=== PATIENT | male | born 1940 | race Caucasian/White ===

== ENCOUNTER → 2016-06-04 | Outpatient (CLI) | payer MEDICARE, OTHER ==
[~2016-06-04] MED LIST: ACETAMINOPHEN-H1 TA1 PO; ATORVASTATIN CA20 M1 PO; BACTRIM DS 8001 TAB PO; BETAPACE 80MG T80 MG PO; CLOPIDOGREL75 M2 PO; KEFLEX 500MG.500 MG PO; LISINOPRIL10 MG PO; LORTAB 5/500 501 TAB PO; PANTOPRAZOLE SO40 M1 PO; TAMSULOSIN HCL0.4 MG PO
== END ==
LOC: RT 10:26
DX: G47.33 Obstructive sleep apnea (adult) (pediatric) (principal)

== ENCOUNTER → 2017-03-18 | Outpatient (CLI) | payer MEDICARE, OTHER ==
[~2017-03-18] MED LIST changes: +ADULT LOW DOSE81 MG PO; +CENTRUM SILVER1 EAC4 PO; +MEDROL 4MG. DOSE4 MG PO; +MELOXICAM7.5 MG PO; +ZITHROMAX Z PA250 MG PO
[2017-03-18 11:37] VITALS: BP 120/85
[2017-03-18 11:38] VITALS: BP 145/93
== END ==
LOC: RT 03-16 09:30
DX: R06.02 Shortness of breath (principal); J43.9 Emphysema, unspecified

== ENCOUNTER → 2017-03-31 | Outpatient (CLI) | payer MEDICARE, OTHER | LOC: SL 20:01 | DX: G47.33 Obstructive sleep apnea (adult) (pediatric) (principal) ==